=== PATIENT | male | born 1975 | race African-American/Black ===

== ENCOUNTER 2018-02-27 20:23 | Emergency (ER) | payer OTHER, SELFPAY ==
[2018-02-27 20:32] VITALS: BP 112/71; PULSE 83; RESP 20; TEMP 36.5; O2SAT 98
--- NOTE | 2018-02-27 20:46 | DI.US.S_ITS ---
PROCEDURE: US ABDOMEN COMPLETE INDICATIONS: abdominal pain, epigastric TECHNIQUE: Real-time scanning was performed of the abdominal and retroperitoneal organs, with image documentation. COMPARISON: None. FINDINGS: Liver: Liver is normal in size and homogeneous in echotexture with diffuse hyperechoic echotexture consistent with fatty infiltration. Note is made of a hypoechoic structure at the inferior right hepatic lobe adjacent to the gallbladder fossa, which has a maximal transverse dimension of 1.6 cm. This is a common area for focal fatty infiltration.. Gallbladder: The gallbladder appears normal Biliary ducts: Intrahepatic bile ducts are non-dilated. Extrahepatic bile duct caliber measures 5.0 mm. Normal is 6-7 mm or less in diameter, or 10 mm or less post-cholecystectomy. Pancreas: Not seen due to bowel gas. Spleen: Spleen is normal in size and homogeneous in echotexture. Kidneys: Kidneys are normal in size and echotexture. Right kidney measures 11.1 cm long; left kidney measures 12.9 cm long. No hydronephrosis or nephrolithiasis. No solid masses. Aorta: Not seen due to bowel gas Iliacs: Not seen due to bowel gas IVC: Not seen due to bowel gas Miscellaneous: No free abdominal fluid. IMPRESSION: The liver is diffusely hyperechoic consistent with fatty infiltration. At the border of the gallbladder fossa there is a 1.6 cm in maximal dimension hypoechoic area within this overall hyperechoic liver echotexture, in an area commonly involved by focal fatty infiltration. By appearance this is most likely focal sparing from otherwise diffuse fatty infiltration and this could be documented by followup ultrasound in 6-8 weeks. Significant portions of the mid and lower abdomen and pelvis are obscured by bowel gas. Depending on the clinical status followup by CT scanning may be warranted at this time due to the reduction in extent of visualization from the bowel gas present. Dictated by: Monster Hutton M.D. on 02/27/2018 at 21:58 Approved by: Monster Hutton M.D. on 02/27/2018 at 22:02
--- NOTE | 2018-02-27 20:48 | ED.ABDPAIN ---
HPI - Abdominal Pain General Chief Complaint: Abdominal Pain Stated Complaint: abdominal pain Time Seen by Provider: 02/27/18 20:39 Source: patient and family () Mode of arrival: ambulatory Limitations: no limitations History of Present Illness HPI narrative: This is a 42-year-old male who comes to the emergency department with complaint of abdominal pain that started for 4 hr ago. Patient states it is sort of in the middle of his upper abdomen. Patient states it has been constant since onset. He has not had similar symptoms the past. He has had nausea and vomiting. He has had several normal bowel movements today. He has not had any fevers. He does not have any radiation to his back. Patient is not having any chest pain, he denies any shortness of breath. Pain has not changed location. He denies any urinary symptoms. He denies any black or bloody stools. Patient denies tobacco, denies illicit. He had 1 shot of plum wine this afternoon. Review of Systems Review of Systems All systems reviewed & are unremarkable except as noted in HPI and below Constitutional Denies fever(s) Cardiovascular Denies chest pain and Denies dyspnea Respiratory Denies dyspnea Gastrointestinal Gastrointestinal: Reports abdominal pain, Denies melena, Denies hematochezia, Denies change in bowel habits, Denies change in stool character, Denies constipation, Denies diarrhea, Reports nausea, Reports vomiting and Denies hematemesis Genitourinary Denies difficulty urinating, Denies dysuria, Denies flank pain and Denies urinary frequency Musculoskeletal Denies back pain Integumentary/Breasts Denies rash PFSH Medical History Hypertension (Acute) Insulin dependent diabetes mellitus (Acute) Sleep apnea (Acute) Social History alcohol intake: current substance use type: does not use Exam Narrative Exam Narrative: GENERAL: Alert and oriented x three, obese male in to moderate distress. HEENT: Head normocephalic, atraumatic, EOMI, pupils reactive, face symmetric, moist mucous membranes NECK: Supple, full range of motion CARDIOVASCULAR: Regular rate and rhythm without murmurs, rubs or gallops. RESPIRATORY: Breath sounds equal bilaterally, no wheezes rales or rhonchi. ABDOMEN: Soft, moderate epigastric tenderness. Normoactive bowel sounds all 4 quadrants. No guarding or rebound, rigidity, no mass, no bruit, no pulsatile mass. : No CVA tenderness EXTREMITIES: Normal range of motion, no clubbing or edema. Neurovascularly intact NEUROLOGICAL: Cranial nerves II through XII grossly intact. Moving all extremities SKIN: Warm, dry, no petechiae, no rashes or lesions. Initial Vital Signs Initial Vital Signs: Vital Signs Temperature 97.7 F 02/27/18 20:32 Pulse Rate 83 02/27/18 20:32 Respiratory Rate 20 02/27/18 20:32 Blood Pressure 112/71 02/27/18 20:32 Pulse Oximetry 98 02/27/18 20:32 Course Orders Ordered: ED Orders 02/27/18 20:34 EKG-12 Lead Stat 02/27/18 20:40 Complete Blood Count AUTO DIFF Stat Comprehensive Metabolic Panel Stat Lipase Stat Troponin & CK Cardiac Panel Stat 02/27/18 20:46 US abdomen complete Stat Discontinued Medications Sodium Chloride (Normal Saline 0.9%) 1,000 mls @ 1,000 mls/hr IV BOLUS ONE Stop: 02/27/18 21:45 Last Infusion: 02/27/18 22:28 Dose: 0 mls/hr Admin: 02/27/18 21:01 Dose: 1,000 mls/hr Ketorolac Tromethamine (Toradol) 30 mg IV NOW ONE Stop: 02/27/18 20:47 Last Admin: 02/27/18 21:00 Dose: 30 mg Ondansetron HCl (Zofran) 4 mg IV NOW ONE Stop: 02/27/18 20:47 Last Admin: 02/27/18 21:00 Dose: 4 mg Ondansetron HCl (Zofran Odt Prepack) 1 bottle MISC SEEINSTR ONE Stop: 02/27/18 23:30 Last Admin: 02/27/18 23:30 Dose: 1 bottle Vital Signs - 8 hr 02/27/18 20:32 02/27/18 22:56 02/27/18 23:27 Temperature 97.7 F Pulse Rate 83 71 81 Respiratory Rate 20 20 18 Blood Pressure 112/71 102/61 Blood Pressure [Right Arm] 103/62 Pulse Oximetry 98 98 98 MDM - Abdominal Pain Lab Data Attestation: I reviewed the patient's lab results. Result diagrams: 02/27/18 20:40 02/27/18 20:40 Lab Results 02/27/18 02/27/18 Range/Units 20:40 20:40 WBC 14.1 H (4.5-11.0) X10^3/uL RBC 4.57 (4.5-5.9) X10^6/uL Hgb 11.6 L (13.5-17.5) g/dL Hct 35.9 L (41-53) % MCV 78.6 L (80-100) fL MCH 25.5 L (26-34) PG MCHC 32.5 (30-36) % RDW 13.1 (11.6-14.8) % Plt Count 265 (150-400) X10^3/uL Neut % (Auto) 73.6 (50-75) % Lymph % (Auto) 15.7 L (25-40) % [place] % (Auto) 7.9 (3-14) % Eos % (Auto) 2.0 (2-4) % Baso % (Auto) 0.8 (0-2) % Neut # (Auto) 98957 H (3459-9725) /uL Sodium 142 (137-145) mmol/L Potassium 3.5 (3.4-5.1) mmol/L Chloride 102 (98-107) mmol/L Carbon Dioxide 28 (22-32) mmol/L BUN 19 (9-20) mg/dL Creatinine 1.10 (0.66-1.25) mg/dL Estimated GFR > 60.0 (>60) mL/min BUN/Creatinine Ratio 17.3 (6-22) Glucose 260 H (70-100) mg/dL Calcium 9.6 (8.4-10.2) mg/dL Total Bilirubin 0.4 (0.2-1.3) mg/dL AST 21 (17-59) IU/L ALT 36 (21-72) IU/L Alkaline Phosphatase 81 (38-126) U/L Total Creatine Kinase 263 H (55-170) U/L CK-MB (CK-2) 0.83 (<2.37) ng/mL CK-MB (CK-2) Rel Index 0.3 L (1.5-5.0) % Troponin I < 0.012 (0.01-0.034) ng/mL Total Protein 7.4 (6.3-8.2) g/dL Albumin 4.5 (3.5-5.0) g/dL Globulin 2.9 (1.7-4.1) g/dL Albumin/Globulin Ratio 1.6 (1.0-2.8) Lipase 13 L (23-300) U/L Imaging Data Abdominal US: Radiologist's impression: [address] [address] Ultrasound Report Signed Patient: Tashi Tadeo#: [id number] : 1975Acct:[id number] Age/Sex: 42 / MDate of Service: 02/27/18 Loc: ED Accession Number: [id number] Procedure: US abdomen complete Ordering Provider: Peggy Fernandez D.O. PROCEDURE: US ABDOMEN COMPLETE INDICATIONS: abdominal pain, epigastric TECHNIQUE: Real-time scanning was performed of the abdominal and retroperitoneal organs, with image documentation. COMPARISON: None. FINDINGS: Liver: Liver is normal in size and homogeneous in echotexture with diffuse hyperechoic echotexture consistent with fatty infiltration. Note is made of a hypoechoic structure at the inferior right hepatic lobe adjacent to the gallbladder fossa, which has a maximal transverse dimension of 1.6 cm. This is a common area for focal fatty infiltration.. Gallbladder: The gallbladder appears normal Biliary ducts: Intrahepatic bile ducts are non-dilated. Extrahepatic bile duct caliber measures 5.0 mm. Normal is 6-7 mm or less in diameter, or 10 mm or less post-cholecystectomy. Pancreas: Not seen due to bowel gas. Spleen: Spleen is normal in size and homogeneous in echotexture. Kidneys: Kidneys are normal in size and echotexture. Right kidney measures 11.1 cm long; left kidney measures 12.9 cm long. No hydronephrosis or nephrolithiasis. No solid masses. Aorta: Not seen due to bowel gas Iliacs: Not seen due to bowel gas IVC: Not seen due to bowel gas Miscellaneous: No free abdominal fluid. IMPRESSION: The liver is diffusely hyperechoic consistent with fatty infiltration. At the border of the gallbladder fossa there is a 1.6 cm in maximal dimension hypoechoic area within this overall hyperechoic liver echotexture, in an area commonly involved by focal fatty infiltration. By appearance this is most likely focal sparing from otherwise diffuse fatty infiltration and this could be documented by followup ultrasound in 6-8 weeks. Significant portions of the mid and lower abdomen and pelvis are obscured by bowel gas. Depending on the clinical status followup by CT scanning may be warranted at this time due to the reduction in extent of visualization from the bowel gas present. Dictated by: Monster Hutton M.D. on 02/27/2018 at 21:58 Approved by: Monster Hutton M.D. on 02/27/2018 at 22:02 ECG Data Attestation: I personally reviewed and interpreted this ECG as follows: Interpretation: Sinus rhythm rate of 65 [place] 179 QRS 98 QTC 352. non-specific change. MDM Narrative Medical decision making narrative: Patient Susan infiltration in the liver. The gallbladder fossa has 1.6 cm hypoechoic area within the liver echotexture commonly involved by focal finally infiltration likely focal sparing from otherwise infiltration but should have recheck. Patient's tenderness is not in the right upper quadrant more epigastric. Patient on recheck is feeling better, discussed US findings and need for follow up and repeat US. Disc given with patient images for followup. Discharge Plan Departure Patient Disposition: Home Clinical Impression: Abdominal pain, Fatty liver Discharge Date/Time: 02/27/18 23:27 Interventions: ED Discharge Assessment Last Done: 02/27/18 23:27 Instructions: DI for Abdominal Pain-Adult Activity Restrictions/Additional Instructions: Follow-up in the next 2-3 days for recheck with your primary care physician. Here ultrasound shows some fatty changes to the liver, there is also a small area that is 1.6 cm that needs follow-up ultrasound in 6-8 weeks. Discussed with her primary care physician. They may wish to have further evaluation sooner. This is likely not the cause of your pain today but does need follow-up. Return to the emergency department for fevers greater than 100.4, persistent vomiting, persistent and/or severe rapidly increasing abdominal pain, black or bloody stools, passing out, chest pain or shortness of breath or other new or concerning symptoms. Take medications as prescribed. Referrals: Angie Suarez DO [Non-Staff] -
--- NOTE | 2018-02-27 20:52 | ED_ITS ---
HPI - Abdominal Pain General Chief Complaint: Abdominal Pain Stated Complaint: abdominal pain Time Seen by Provider: 02/27/18 20:39 Source: patient and family () Mode of arrival: ambulatory Limitations: no limitations History of Present Illness HPI narrative: This is a 42-year-old male who comes to the emergency department with complaint of abdominal pain that started for 4 hr ago. Patient states it is sort of in the middle of his upper abdomen. Patient states it has been constant since onset. He has not had similar symptoms the past. He has had nausea and vomiting. He has had several normal bowel movements today. He has not had any fevers. He does not have any radiation to his back. Patient is not having any chest pain, he denies any shortness of breath. Pain has not changed location. He denies any urinary symptoms. He denies any black or bloody stools. Patient denies tobacco, denies illicit. He had 1 shot of plum wine this afternoon. Review of Systems Review of Systems All systems reviewed & are unremarkable except as noted in HPI and below Constitutional Denies fever(s) Cardiovascular Denies chest pain and Denies dyspnea Respiratory Denies dyspnea Gastrointestinal Gastrointestinal: Reports abdominal pain, Denies melena, Denies hematochezia, Denies change in bowel habits, Denies change in stool character, Denies constipation, Denies diarrhea, Reports nausea, Reports vomiting and Denies hematemesis Genitourinary Denies difficulty urinating, Denies dysuria, Denies flank pain and Denies urinary frequency Musculoskeletal Denies back pain Integumentary/Breasts Denies rash PFSH Medical History Hypertension (Acute) Insulin dependent diabetes mellitus (Acute) Sleep apnea (Acute) Social History alcohol intake: current substance use type: does not use Exam Narrative Exam Narrative: GENERAL: Alert and oriented x three, obese male in to moderate distress. HEENT: Head normocephalic, atraumatic, EOMI, pupils reactive, face symmetric, moist mucous membranes NECK: Supple, full range of motion CARDIOVASCULAR: Regular rate and rhythm without murmurs, rubs or gallops. RESPIRATORY: Breath sounds equal bilaterally, no wheezes rales or rhonchi. ABDOMEN: Soft, moderate epigastric tenderness. Normoactive bowel sounds all 4 quadrants. No guarding or rebound, rigidity, no mass, no bruit, no pulsatile mass. : No CVA tenderness EXTREMITIES: Normal range of motion, no clubbing or edema. Neurovascularly intact NEUROLOGICAL: Cranial nerves II through XII grossly intact. Moving all extremities SKIN: Warm, dry, no petechiae, no rashes or lesions. Initial Vital Signs Initial Vital Signs: Vital Signs Temperature 97.7 F 02/27/18 20:32 Pulse Rate 83 02/27/18 20:32 Respiratory Rate 20 02/27/18 20:32 Blood Pressure 112/71 02/27/18 20:32 Pulse Oximetry 98 02/27/18 20:32 Course Orders Ordered: ED Orders 02/27/18 20:34 EKG-12 Lead Stat 02/27/18 20:40 Complete Blood Count AUTO DIFF Stat Comprehensive Metabolic Panel Stat Lipase Stat Troponin & CK Cardiac Panel Stat 02/27/18 20:46 US abdomen complete Stat Discontinued Medications Sodium Chloride (Normal Saline 0.9%) 1,000 mls @ 1,000 mls/hr IV BOLUS ONE Stop: 02/27/18 21:45 Last Infusion: 02/27/18 22:28 Dose: 0 mls/hr Admin: 02/27/18 21:01 Dose: 1,000 mls/hr Ketorolac Tromethamine (Toradol) 30 mg IV NOW ONE Stop: 02/27/18 20:47 Last Admin: 02/27/18 21:00 Dose: 30 mg Ondansetron HCl (Zofran) 4 mg IV NOW ONE Stop: 02/27/18 20:47 Last Admin: 02/27/18 21:00 Dose: 4 mg Ondansetron HCl (Zofran Odt Prepack) 1 bottle MISC SEEINSTR ONE Stop: 02/27/18 23:30 Last Admin: 02/27/18 23:30 Dose: 1 bottle Vital Signs - 8 hr 02/27/18 20:32 02/27/18 22:56 02/27/18 23:27 Temperature 97.7 F Pulse Rate 83 71 81 Respiratory Rate 20 20 18 Blood Pressure 112/71 102/61 Blood Pressure [Right Arm] 103/62 Pulse Oximetry 98 98 98 MDM - Abdominal Pain Lab Data Attestation: I reviewed the patient's lab results. Result diagrams: 02/27/18 20:40 02/27/18 20:40 Lab Results 02/27/18 02/27/18 Range/Units 20:40 20:40 WBC 14.1 H (4.5-11.0) X10^3/uL RBC 4.57 (4.5-5.9) X10^6/uL Hgb 11.6 L (13.5-17.5) g/dL Hct 35.9 L (41-53) % MCV 78.6 L (80-100) fL MCH 25.5 L (26-34) PG MCHC 32.5 (30-36) % RDW 13.1 (11.6-14.8) % Plt Count 265 (150-400) X10^3/uL Neut % (Auto) 73.6 (50-75) % Lymph % (Auto) 15.7 L (25-40) % [place] % (Auto) 7.9 (3-14) % Eos % (Auto) 2.0 (2-4) % Baso % (Auto) 0.8 (0-2) % Neut # (Auto) 53586 H (8046-5398) /uL Sodium 142 (137-145) mmol/L Potassium 3.5 (3.4-5.1) mmol/L Chloride 102 (98-107) mmol/L Carbon Dioxide 28 (22-32) mmol/L BUN 19 (9-20) mg/dL Creatinine 1.10 (0.66-1.25) mg/dL Estimated GFR > 60.0 (>60) mL/min BUN/Creatinine Ratio 17.3 (6-22) Glucose 260 H (70-100) mg/dL Calcium 9.6 (8.4-10.2) mg/dL Total Bilirubin 0.4 (0.2-1.3) mg/dL AST 21 (17-59) IU/L ALT 36 (21-72) IU/L Alkaline Phosphatase 81 (38-126) U/L Total Creatine Kinase 263 H (55-170) U/L CK-MB (CK-2) 0.83 (<2.37) ng/mL CK-MB (CK-2) Rel Index 0.3 L (1.5-5.0) % Troponin I < 0.012 (0.01-0.034) ng/mL Total Protein 7.4 (6.3-8.2) g/dL Albumin 4.5 (3.5-5.0) g/dL Globulin 2.9 (1.7-4.1) g/dL Albumin/Globulin Ratio 1.6 (1.0-2.8) Lipase 13 L (23-300) U/L Imaging Data Abdominal US: Radiologist's impression: [address] [address] Ultrasound Report Signed Patient: Tashi Tadeo#: [id number] : 1975Acct:[id number] Age/Sex: 42 / MDate of Service: 02/27/18 Loc: ED Accession Number: [id number] Procedure: US abdomen complete Ordering Provider: Peggy Fernandez D.O. PROCEDURE: US ABDOMEN COMPLETE INDICATIONS: abdominal pain, epigastric TECHNIQUE: Real-time scanning was performed of the abdominal and retroperitoneal organs, with image documentation. COMPARISON: None. FINDINGS: Liver: Liver is normal in size and homogeneous in echotexture with diffuse hyperechoic echotexture consistent with fatty infiltration. Note is made of a hypoechoic structure at the inferior right hepatic lobe adjacent to the gallbladder fossa, which has a maximal transverse dimension of 1.6 cm. This is a common area for focal fatty infiltration.. Gallbladder: The gallbladder appears normal Biliary ducts: Intrahepatic bile ducts are non-dilated. Extrahepatic bile duct caliber measures 5.0 mm. Normal is 6-7 mm or less in diameter, or 10 mm or less post-cholecystectomy. Pancreas: Not seen due to bowel gas. Spleen: Spleen is normal in size and homogeneous in echotexture. Kidneys: Kidneys are normal in size and echotexture. Right kidney measures 11.1 cm long; left kidney measures 12.9 cm long. No hydronephrosis or nephrolithiasis. No solid masses. Aorta: Not seen due to bowel gas Iliacs: Not seen due to bowel gas IVC: Not seen due to bowel gas Miscellaneous: No free abdominal fluid. IMPRESSION: The liver is diffusely hyperechoic consistent with fatty infiltration. At the border of the gallbladder fossa there is a 1.6 cm in maximal dimension hypoechoic area within this overall hyperechoic liver echotexture, in an area commonly involved by focal fatty infiltration. By appearance this is most likely focal sparing from otherwise diffuse fatty infiltration and this could be documented by followup ultrasound in 6-8 weeks. Significant portions of the mid and lower abdomen and pelvis are obscured by bowel gas. Depending on the clinical status followup by CT scanning may be warranted at this time due to the reduction in extent of visualization from the bowel gas present. Dictated by: Monster Hutton M.D. on 02/27/2018 at 21:58 Approved by: Monster Hutton M.D. on 02/27/2018 at 22:02 ECG Data Attestation: I personally reviewed and interpreted this ECG as follows: Interpretation: Sinus rhythm rate of 65 [place] 179 QRS 98 QTC 352. non-specific change. MDM Narrative Medical decision making narrative: Patient Susan infiltration in the liver. The gallbladder fossa has 1.6 cm hypoechoic area within the liver echotexture commonly involved by focal finally infiltration likely focal sparing from otherwise infiltration but should have recheck. Patient's tenderness is not in the right upper quadrant more epigastric. Patient on recheck is feeling better , discussed US findings and need for follow up and repeat US. Disc given with patient images for followup. Discharge Plan Departure Patient Disposition: Home Clinical Impression: Abdominal pain, Fatty liver Discharge Date/Time: 02/27/18 23:27 Interventions: ED Discharge Assessment Last Done: 02/27/18 23:27 Instructions: DI for Abdominal Pain-Adult Activity Restrictions/Additional Instructions: Follow-up in the next 2-3 days for recheck with your primary care physician. Here ultrasound shows some fatty changes to the liver, there is also a small area that is 1.6 cm that needs follow-up ultrasound in 6-8 weeks. Discussed with her primary care physician. They may wish to have further evaluation sooner. This is likely not the cause of your pain today but does need follow- up. Return to the emergency department for fevers greater than 100.4, persistent vomiting, persistent and/or severe rapidly increasing abdominal pain, black or bloody stools, passing out, chest pain or shortness of breath or other new or concerning symptoms. Take medications as prescribed. Referrals: Angie Suarez DO [Non-Staff] -
[2018-02-27 20:56] LABS: Add Manual Diff / Slide Review NO; Basophils Percent Auto 0.8 % (0-2); Hematocrit 35.9 % (41-53); Hemoglobin 11.6 g/dL (13.5-17.5); Lymphocytes Percent Auto 15.7 % (25-40); Mean Corpuscular HGB Conc 32.5 % (30-36); Mean Corpuscular Hemoglobin 25.5 PG (26-34); Mean Corpuscular Volume 78.6 fL (80-100); Monocytes Percent Auto 7.9 % (3-14); Neutrophils Absolute Auto 10400 /uL (3000-5900); Neutrophils Percent Auto 73.6 % (50-75); Platelet Count 265 X10^3/uL (150-400); Red Blood Cell Count 4.57 X10^6/uL (4.5-5.9); Red Cell Distribution Width 13.1 % (11.6-14.8); White Blood Cell Count 14.1 X10^3/uL (4.5-11.0)
[2018-02-27] MEDS: KETOROLAC 60 MG/2 ML VIAL 30 MG IV (21:00)
[2018-02-27] MEDS: ONDANSETRON 4 MG/2 ML INJ IV (21:00)
[2018-02-27] MEDS: SODIUM CHLORIDE 0.9% 1,000 ML 1000 ML IV (21:01)
[2018-02-27 21:14] LABS: Alanine Aminotransferase 36 IU/L (21-72); Albumin 4.5 g/dL (3.5-5.0); Albumin Globulin Ratio 1.6 (1.0-2.8); Alkaline Phosphatase 81 U/L (38-126); Aspartate Aminotransferase 21 IU/L (17-59); BUN Creatinine Ratio 17.3 (6-22); Bilirubin Total 0.4 mg/dL (0.2-1.3); Blood Urea Nitrogen 19 mg/dL (9-20); Calcium 9.6 mg/dL (8.4-10.2); Carbon Dioxide 28 mmol/L (22-32); Chloride 102 mmol/L (98-107); Creatine Kinase 263 U/L (55-170); Estimated Glomerular Filt Rate > 60.0 mL/min (>60); Globulin 2.9 g/dL (1.7-4.1); Glucose 260 mg/dL (70-100); HEMOLYSIS < 15 (0-50); Lipase 13 U/L (23-300); Potassium 3.5 mmol/L (3.4-5.1); Sodium 142 mmol/L (137-145); Total Protein 7.4 g/dL (6.3-8.2)
[2018-02-27 21:26] LABS: Troponin I < 0.012 ng/mL (0.01-0.034)
[2018-02-27 21:29] LABS: CKMB % Relative Index 0.3 % (1.5-5.0); Creatine Kinase MB 0.83 ng/mL (<2.37)
[2018-02-27 22:56] VITALS: BP 103/62; PULSE 71; RESP 20; O2SAT 98
[2018-02-27 23:27] VITALS: BP 102/61; PULSE 81; RESP 18; O2SAT 98
[2018-02-27] MEDS: ONDANSETRON 4 MG ODT PREPACK 1 BOTTLE MISC (23:30)
== END 2018-02-27 23:27 | disposition home or self-care (01) ==
PROVIDERS: Emergency Provider Emergency Medicine
DX: K76.0 Fatty (change of) liver, not elsewhere classified (principal); R10.9 Unspecified abdominal pain
CPT/HCPCS: 36591; 76700; 80053; 82550; 82553; 83690; 84484; 85025; 93005; 96361; 96374; 96375; 99283; 99285; J1885; J2405

== ENCOUNTER → 2019-02-03 16:33 | Outpatient (CLI) | payer OTHER, SELFPAY ==
--- NOTE | 2019-02-03 16:36 | DI.MRI.S_ITS ---
PROCEDURE: MR LUMBAR SPINE WO/W CON INDICATIONS: Right groin and testicular pain TECHNIQUE: Noncontrast sagittal T1 spin echo and T2 fast spin echo, sagittal STIR, axial T1 and T2 fast spin echo through the lumbar spine. In cases with scoliosis, additional coronal T2 fast spin echo may be performed. After the administration of contrast, sagittal and axial T1 spin echo with fat saturation through the lumbar spine. COMPARISON: None. FINDINGS: Image quality: Diagnostic Alignment and curvature: There is minimal retrolisthesis seen at L5-S1. Marrow: Marrow is of normal overall signal. No acute vertebral body compression fractures. No suspicious marrow enhancement. Spinal cord: Conus medullaris terminates at the T12-L1 level. Visualized spinal cord demonstrates normal signal, without suspicious enhancement. Paraspinous soft tissues: No paravertebral masses or abnormal enhancement. T11-T12: Mild to moderate loss of disc height and disc signal are seen. Bridging endplate osteophytes are seen. Reactive marrow endplate changes are seen anteriorly, which are hyperintense on T1-weighted and T2-weighted imaging and most consistent with fatty metaplasia (Modic type II changes). No significant neural foraminal or central canal narrowing can be seen. T12-L1: Normal appearance. L1-L2: Normal appearance. L2-L3: Normal appearance. L3-L4: No significant abnormality is seen. L4-L5: The disc height is well-preserved. There is mild loss of disc signal seen. Mild to moderate disc bulge is seen. There is moderate right-sided and moderate to severe left-sided neural foraminal narrowing seen. There is a mild degree of compression seen upon the exiting left L4 nerve root, as on series 3 image 13. Mild to moderate central canal narrowing is seen. L5-S1: The disc height is well-preserved. Loss of disc signal is seen at this level. Moderate disc bulge is seen at this level. There is a faintly seen annular fissure present posteriorly, as on series 4 image 9. Mild to moderate facet hypertrophy is seen. There is moderate to severe right-sided and at least moderate left-sided neural foraminal narrowing seen. There is a degree of compression seen upon the exiting nerve roots. Moderate central canal narrowing is seen. IMPRESSION: Premature lower lumbar spine degenerative changes are seen, which are most prominent at the L5-S1 level. No abnormal enhancement is seen. Dictated by: Harvinder Marshall M.D. on 02/03/2019 at 17:23 Approved by: Harvinder Marshall M.D. on 02/03/2019 at 17:27
== END ==
PROVIDERS: Visit Provider Internal Medicine
DX: R10.31 Right lower quadrant pain (principal); N50.811 Right testicular pain; M47.817 Spondylosis without myelopathy or radiculopathy, lumbosacral region
CPT/HCPCS: 72158